=== PATIENT | male | born 1955 | race Caucasian/White ===

== ENCOUNTER → 2017-10-01 | Outpatient (CLI) | payer OTHER ==
[~2017-10-01] MED LIST: AMLO5TAB4 PO; ASPI-482 PO; BUPIVACAINE MPF 0.25% 10 ML VIAL. ONE; IOHEXOL 180 MG/ML 10 ML VIAL. ONE; MULT1TAB52 PO; OMEG1CAP6 PO; PRAV10TA2 PO; methylPREDNISolone ACETATE 40 MG/ML VIAL. ONE
--- NOTE | 2017-10-01 10:40 | PAIN ---
DATE OF SERVICE: 10/01/2017 DIAGNOSIS: Left low back and left lower extremity pain. HISTORY OF PRESENT ILLNESS: This is a 62-year-old male who presents with history of pain in low back, left leg, radiating to the posterior gluteus, posterior thigh, for about 6 months, worse over the past 1 month. The patient has had significant pain with this in the past, has seen his neurosurgeon without any surgical indications. The patient has a fairly localized pain now in the left low back and hip, posterior gluteus, posterior thigh, radiating only with walking, standing, change in positions. The patient reports better with sitting, better with lying down, does not awaken him from sleep frequently and only very rarely it caused any trouble at night. The patient reports mostly noticeable with walking or climbing upstairs or going downstairs, main exacerbating factor to cause the pain on his left side. The patient reports it is a 9 on a scale of 10 at its worse, 5 on average, 2 at its least and is a 2 today. The patient reports aching, sharp, can be tight and shooting pain as well, sometimes stabbing. The patient reports no difficulty with bowel or bladder control. No difficulty with sitting. Again walking downstairs is most painful activity. The patient reports that stretching has been helping. He has not had any formal physical therapies or other treatments or other modalities at this time. No motor loss, no bowel or bladder incontinence. PAST MEDICAL HISTORY: Significant for hearing loss, hypertension, arthritis, hyperlipidemia. PREVIOUS SURGERY: Includes left inguinal hernia repair, umbilical hernia repair and bilateral knee scopes. CURRENT MEDICATIONS: Include fish oil, baby aspirin, multivitamins, pravastatin and Norvasc. ALLERGIES: The patient has no known drug allergies. PHYSICAL EXAMINATION: VITAL SIGNS: Today, the patient's blood pressure is 155/93, pulse 78, respirations 20, temperature 98.3 degrees Fahrenheit. 6 feet 1 inch, weight is 220 pounds. GENERAL: The patient is awake, alert, oriented, appropriate, very pleasant demeanor. HEENT: Head shows normocephalic, atraumatic. Extraocular movements are intact, symmetrical. Oral cavity: Mucous membranes moist and pink. Dentition is intact. NECK: Shows anterior throat supple without palpable lymphadenopathy noted. Swallow reflex symmetrical. CHEST: Shows normal with inspection. Breath sounds clear to auscultation bilaterally. HEART: Shows S1 and S2 clear. ABDOMEN: Soft, nontender, nondistended. No palpable organomegaly. No rebound or guarding demonstrated. BACK: Shows spine grossly in the midline. Normal appearing lumbar lordotic curvature, lumbar paraspinous musculature symmetrical. No tenderness with palpation. No tenderness over the sacrum or sacroiliac regions. Lower extremities show deep tendon reflexes 2+ in the patellar and 1+ tendo calcaneus tendons. Motor exam is strong with 5/5 dorsiflexion, extension, quadriceps and hamstring flexion. The patient's left gluteus shows significant tenderness in the medial superior aspect and lateral superior aspect of the left gluteus with very firm deep palpation. Right side is nontender. The patient shows good rotational motion of the hip and Wayne and Gaenslen maneuvers are negative bilaterally, with some minor radiation with palpation in the left gluteus into the posterior upper thigh, but only very minor. Options were discussed with the patient. The patient's old chart was reviewed, his current medication regimen updated. Current review of systems updated today as well as noted. The patient has findings consistent with a left piriformis syndrome. We will plan on proceeding with the left piriformis injection today. Options were discussed, and the patient would like to proceed. We will encourage the patient to maintain stretching and strengthening as well and showed him some stretches to do with the piriformis specifically. Risks were discussed today including, but not limited to bleeding, infection, possibility of intravascular injection sequelae, spread of local anesthetic and numbness, side effects of steroid medication, exposure to fluoroscopy and poor results regarding pain control. The patient understands and wished to proceed. The patient to return to clinic in approximately 2 weeks for followup. He was counseled on return appointment, activity level and side effects to be aware of. DIAGNOSIS: Left piriformis syndrome. PROCEDURE: Left piriformis muscular injection using C-arm fluoroscopic guidance under sterile prep and drape using local anesthetic. MEDICATION INJECTED: A total of 40 mg of Depo-Medrol, plus 3 mL of 0.25% bupivacaine after negative aspiration and 2 mL Isovue for contrast with good local spread, no vascular uptake. No washout. CONDITION AT DISCHARGE: Stable. The patient tolerated procedure well, had no complications. MARITA PHAM MD DR: ANDRE/juan manuel JOB#: [id number] / [id number]
== END | disposition home or self-care (01) ==
LOC: PNCL 07:53
PROVIDERS: ATTEND Anesthesiology
DX: G57.02 Lesion of sciatic nerve, left lower limb (principal); I10 Essential (primary) hypertension; M19.90 Unspecified osteoarthritis, unspecified site; E78.5 Hyperlipidemia, unspecified; Z98.890 Other specified postprocedural states
CPT/HCPCS: 27096; J1030; J3490; G0260

== ENCOUNTER → 2018-10-04 | Outpatient (CLI) | payer OTHER ==
[~2018-10-04] MED LIST changes: -methylPREDNISolone ACETATE 40 MG/ML VIAL. ONE; +methylPREDNISolone ACETATE 80 MG/ML VIAL. ONE
--- NOTE | 2018-10-04 10:51 | PAIN ---
DATE OF SERVICE: 10/04/2018 PROGRESS NOTE FOR PAIN CLINIC DIAGNOSES: Left piriformis syndrome. HISTORY OF PRESENT ILLNESS: The patient is a 63-year-old male who returns for followup, last seen 10/01/2017. The patient had similar symptoms, had a piriformis injection at that time with excellent relief, near 100% until the last 2 months ago; the pain began to return. The patient reports it is worse with walking and standing. He has been doing some stretching and exercises with his leg and hip as well, which helped the pain, but still some tightness in the left hip posterior gluteus, radiating to the posterior thigh to the knee with a tightness sensation; also aching, dull, worse with activity, walking or standing and better with lying down or sitting. It does not awaken him from sleep at night. The patient reports the pain is a 6 on a scale 10 at its worst, 5 on average, 5 at its least and it is a 5 today. The patient reports no new motor or sensory deficits or other complaints. He was increasing his distance walking and doing work activities, house activities and travelling with greater ease and comfort until about the last 2 months ago. The pain began to return, not as severe as it was last September, but still present. PHYSICAL EXAMINATION: VITAL SIGNS: The patient's blood pressure 140/91, pulse 63, respirations 18 and temperature 98.3 degrees Fahrenheit. Height 6 feet 1 inch, weight is 232 pounds. GENERAL: The patient is awake, alert, oriented and appropriate, with very pleasant demeanor. HEENT EXAMINATION: Shows normocephalic, atraumatic. Extraocular movements are intact and symmetrical. Oral cavity, mucous membranes are moist and pink. Dentition is intact. NECK: Shows anterior throat supple, without palpable lymphadenopathy noted. Swallow reflex is symmetrical. CHEST: Shows normal with inspection. Breath sounds are clear to auscultation bilaterally. HEART: Shows S1, S2 clear. No murmurs auscultated. ABDOMEN: Soft, nontender and nondistended. No palpable organomegaly is noted. No rebound or guarding demonstrated. BACK: Shows spine grossly in the midline. Normal-appearing thoracic kyphosis and lumbar lordotic curvature. EXTREMITIES: The patient's lower extremities show deep tendon reflexes 2+ at the patella and tendo calcaneus tendons are 1+. Motor exam is strong with 5/5 dorsiflexion, extension, quadriceps and hamstring flexion. With examination, the patient's left gluteus with knee flexion on the left side shows fairly significant tenderness in the superior lateral aspect of the gluteus on the left thigh with radiation to the left posterior thigh mildly with deep palpation. Right side shows no tenderness. No specific trigger points are palpated bilaterally. Peripheral pulses are 1+ posterior tibial. No peripheral edema is noted bilaterally. Options were discussed with the patient. The patient's old chart was reviewed as was his current medication regimen updated. Current review of systems updated today as well. We will proceed with a left piriformis muscle injection. Risks were discussed, including but not limited to bleeding, infection, possibility of intravascular injection sequelae, spread of local anesthetic and numbness, side effects of steroid medication, exposure to fluoroscopy and poor results regarding pain control. The patient understands and wished to proceed. The patient is to return to the clinic in approximately 2 weeks or if necessary. He was counseled as to activity level as well as side effects to be aware of. I encouraged to increase his stretching and strengthening of the left piriformis as well as he has been doing. DIAGNOSIS: Left piriformis syndrome. PROCEDURE: Left piriformis musculature injection using C-arm fluoroscopic guidance under sterile prep and drape using local anesthetic. MEDICATIONS INJECTED: A total of 3 mL of 0.25% bupivacaine and 80 mg Depo-Medrol after negative aspiration as well as 2 mL of Isovue for contrast, with good local spread without uptake. CONDITION AT DISCHARGE: Stable. The patient tolerated the procedure well, had no complications. MARITA PHAM MD DR: ANDRE/juan manuel JOB#: [id number] / [id number]
== END | disposition home or self-care (01) ==
LOC: PNCL 08:07
PROVIDERS: ATTEND Anesthesiology
DX: G57.02 Lesion of sciatic nerve, left lower limb (principal); M79.18 Myalgia, other site
CPT/HCPCS: 20552; 77002; J1040; J3490; Q9965